=== PATIENT | male | born 1970 | race American Indian/Alaskan Native ===

== ENCOUNTER 2017-04-23 22:46 | Emergency (ER) | payer OTHER ==
[2017-04-23 23:04] VITALS: BP 159/103
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
[2017-04-23 23:57] LABS: CHLORIDE,CL 99 mmol/L (101-111); SODIUM,NA 137 mmol/L (135-145)
--- NOTE | 2017-04-25 11:35 | EKG ---
04/23/2017 - PAZ CHAUHAN - TIME: 2213 hours. EKG shows normal sinus rhythm. Nonspecific T-wave abnormality in anterior lateral leads. [facility] /[id number]
== END 2017-04-24 00:39 | disposition home or self-care (01) ==
LOC: DL.ED 22:46
DX: I11.9 Hypertensive heart disease without heart failure (principal)
CPT/HCPCS: 36415; 80053; 84484; 85025; 85379; 93005; 99284; G0480; 93010

== ENCOUNTER 2019-06-11 09:44 | Emergency (ER) | payer BC, OTHER ==
[2019-06-11 10:03] VITALS: BP 164/93; PULSE 130
[2019-06-11] MEDS ORDERED: Acetaminophen/HYDROcodone 325-10 MG Tab PO ONE (10:48)
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
== END 2019-06-11 11:20 | disposition home or self-care (01) ==
LOC: DL.ED 09:44
DX: S92.014A Nondisplaced fracture of body of right calcaneus, initial encounter for closed fracture (principal); I10 Essential (primary) hypertension; Z79.899 Other long term (current) drug therapy; Y93.39 Activity, other involving climbing, rappelling and jumping off
CPT/HCPCS: 29515; 73610; 73650; 99283; A9270; 29505

== ENCOUNTER 2021-01-05 12:15 | Emergency (ER) | payer MEDICAID, OTHER ==
[2021-01-05 12:23] VITALS: BP 148/98; PULSE 90
[2021-01-05] MEDS ORDERED: Ondansetron 4 MG/2 ML SDV IVPUSH ONE (13:03)
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
[2021-01-05 13:26] LABS: ANION GAP 17.5 mEq/L (7-13); CHLORIDE,CL 103 mmol/L (98-107); SODIUM,NA 141 mmol/L (136-145)
[2021-01-05] MEDS ORDERED: Iopamidol 612 MG/ML 100 ML Bottle IVPUSH ONE (14:01)
[2021-01-05] MEDS ORDERED: Octreotide 100 MCG/ML SDV IVPUSH ONE (14:34)
[2021-01-05] MEDS ORDERED: Pantoprazole 40 MG Vial IVPUSH ONE (14:34)
[2021-01-05] MEDS ORDERED: MVI, Adult with Vitamin K 10 ML, Thiamine 100 MG, Folic Acid 1 MG in Lactated Ringers 1... IV ONE ×4 (14:34)
[2021-01-05] MEDS ORDERED: Ondansetron 4 MG/2 ML SDV IV ONE (14:35)
[2021-01-05] MEDS ORDERED: Sodium Chloride 0.9% 10 ML Syringe FLUSH PRN (14:36)
[2021-01-05] MEDS ORDERED: Octreotide 100 MCG in Sodium Chloride 0.9% 99 ML IV SCH (14:45)
[2021-01-05] MEDS ORDERED: Pantoprazole 40 MG in Sodium Chloride 0.9% 100 ML IV SCH (14:45)
[2021-01-05] MEDS ORDERED: LORazepam 2 MG/ML SDV IVPUSH ONE (15:01)
--- NOTE | 2021-01-05 15:01 | CT ---
PROCEDURE INFORMATION: Exam: CT Chest With Contrast; Diagnostic Exam date and time: 01/05/2021 2:25 PM Age: 50 years old Clinical indication: Other: Vomiting blood after contrast; Shortness of breath; Additional info: SOB and abd pain, HX pulmonary nodules, presents with with SOB with exertion, also complaing of abd pain with elevated bilirubin TECHNIQUE: Imaging protocol: Diagnostic computed tomography of the chest with contrast. Radiation optimization: All CT scans at this facility use at least one of these dose optimization techniques: automated exposure control; mA and/or kV adjustment per patient size (includes targeted exams where dose is matched to clinical indication); or iterative reconstruction. Contrast material: [id number]; Contrast volume: 100 ml; Contrast route: INTRAVENOUS (IV); COMPARISON: No relevant prior studies available. FINDINGS: Lungs: Unremarkable. No consolidation. No masses. Pleural spaces: Unremarkable. No pneumothorax. No pleural effusion. Heart: Unremarkable. No cardiomegaly. No pericardial effusion. Aorta: Unremarkable. No aortic aneurysm. Lymph nodes: Unremarkable. No enlarged lymph nodes. Bones/joints: Unremarkable. No acute fracture. Soft tissues: Unremarkable. IMPRESSION: Normal appearance of the chest.. PROCEDURE INFORMATION: Exam: CT Abdomen And Pelvis With Contrast Exam date and time: 01/05/2021 2:25 PM Age: 50 years old Clinical indication: Other: Vomiting blood after contrast; Shortness of breath; Additional info: SOB and abd pain, HX pulmonary nodules, presents with with SOB with exertion, also complaing of abd pain with elevated bilirubin TECHNIQUE: Imaging protocol: Computed tomography of the abdomen and pelvis with contrast. Radiation optimization: All CT scans at this facility use at least one of these dose optimization techniques: automated exposure control; mA and/or kV adjustment per patient size (includes targeted exams where dose is matched to clinical indication); or iterative reconstruction. Contrast material: [id number]; Contrast volume: 100 ml; Contrast route: INTRAVENOUS (IV); COMPARISON: No relevant prior studies available. FINDINGS: Liver: There is marked diffuse decreased attenuation within the liver compatible with fatty change. The liver is also slightly enlarged. Question possible steatohepatitis. No focal hepatic lesion identified. Gallbladder and bile ducts: Normal. No calcified stones. No ductal dilation. Pancreas: Normal. No ductal dilation. Spleen: Normal. No splenomegaly. Adrenal glands: Normal. No mass. Kidneys and ureters: Normal. No hydronephrosis. Stomach and bowel: Unremarkable. No obstruction. No mucosal thickening. Appendix: No evidence of appendicitis. Intraperitoneal space: Unremarkable. No free air. No significant fluid collection. Vasculature: Unremarkable. No abdominal aortic aneurysm. Lymph nodes: Unremarkable. No enlarged lymph nodes. Urinary bladder: Unremarkable as visualized. Reproductive: Unremarkable as visualized. Bones/joints: Unremarkable. No acute fracture. Soft tissues: Unremarkable. IMPRESSION: 1. Marked fatty change within the liver with mild hepatomegaly. Question possible steno hepatitis. No other abnormality identified within the abdomen or pelvis.
== END 2021-01-05 16:37 ==
LOC: DL.ED 12:15
DX: K92.2 Gastrointestinal hemorrhage, unspecified (principal); F10.10 Alcohol abuse, uncomplicated; I10 Essential (primary) hypertension
CPT/HCPCS: 36415; 71260; 74177; 80053; 80305; 80307; 81001; 82272; 83605; 83615; 83690; 83735; 84439; 84443; 84484; 85025; 87635; 93005; 93010; 96365; 96368; 96375; 96376; 99284; 99285; C9113; J2060; J2354; J2405; J3411; J7120; Q9967; J3490; U0002

== ENCOUNTER 2021-06-17 18:23 | Emergency (ER) | payer MEDICAID ==
[2021-06-17 19:19] VITALS: BP 122/88; PULSE 94
[2021-06-17] MEDS ORDERED: Acetaminophen 325 MG Tab PO ONE (19:34)
[2021-06-17 20:19] LABS: ANION GAP 14.8 mEq/L (7-13); CHLORIDE,CL 97 mmol/L (98-107); SODIUM,NA 135 mmol/L (136-145)
[2021-06-17] MEDS ORDERED: Azithromycin 250 MG Tab PO ONE (20:30)
[2021-06-17] MEDS ORDERED: Benzonatate 100 MG Cap PO ONE (20:30)
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
--- NOTE | 2021-06-17 21:22 | CR ---
PROCEDURE INFORMATION: Exam: XR Chest Exam date and time: 06/17/2021 8:14 PM Age: 51 years old Clinical indication: Cough; Additional info: Covid + cough TECHNIQUE: Imaging protocol: XR of the chest. Views: 1 view. COMPARISON: CT Chest Abdomen Pelvis w Cont 01/05/2021 2:25 PM FINDINGS: Tubes, catheters and devices: Cardiac lead wires are present. Lungs: Linear and patchy areas of parenchymal opacification are seen at both lung bases but more pronounced on the right. This most likely represents a combination of atelectasis and possibly pneumonia, especially on the right. Pleural spaces: Unremarkable. No pleural effusion. No pneumothorax. Heart/Mediastinum: Unremarkable. No cardiomegaly. Bones/joints: Unremarkable. IMPRESSION: Bibasilar areas of parenchymal opacification, larger on the right.
== END 2021-06-17 20:55 | disposition home or self-care (01) ==
LOC: DL.ED 18:23
DX: U07.1 COVID-19 (principal); J12.82 Pneumonia due to coronavirus disease 2019; I10 Essential (primary) hypertension
CPT/HCPCS: 36415; 71045; 80053; 80307; 83605; 83735; 85025; 85379; 85610; 87040; 99283; A9270

== ENCOUNTER 2021-06-19 20:12 | Emergency (ER) | payer MEDICAID ==
[2021-06-19 19:53] VITALS: BP 125/89; PULSE 81
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
[~2021-06-19 20:12] MED LIST: Sodium Chloride 0.9% 10 ML Syringe FLUSH PRN
[2021-06-19 20:25] LABS: ANION GAP 16.8 mEq/L (7-13); CHLORIDE,CL 96 mmol/L (98-107); SODIUM,NA 132 mmol/L (136-145)
--- NOTE | 2021-06-19 20:31 | PCM.EKG ---
#1 Interpretation EKG Date: 06/19/21 Time: 19:59 Rhythm: NSR Rate (Beats/Min): 73 [place]: Normal P-Wave: Present QRS: Normal ST-T: Normal QT: Normal
--- NOTE | 2021-06-19 20:45 | CR ---
PROCEDURE INFORMATION: Exam: XR Chest Exam date and time: 06/19/2021 8:14 PM Age: 51 years old Clinical indication: Shortness of breath; Additional info: Covid SOB TECHNIQUE: Imaging protocol: XR of the chest. Views: 1 view. COMPARISON: CR Chest 1V Frontal 06/17/2021 8:14 PM FINDINGS: Lungs: Bilateral infiltrates in the mid and lower lung zones consistent with known covid diagnosis. There has been slight progression in the left lower lobe. Pleural spaces: Unremarkable. No pleural effusion. No pneumothorax. Heart/Mediastinum: Unremarkable. No cardiomegaly. Bones/joints: Unremarkable. IMPRESSION: Bilateral infiltrates in the mid and lower lung zones consistent with known covid diagnosis. There has been slight progression in the left lower lobe.
== END 2021-06-19 21:00 | disposition home or self-care (01) ==
LOC: DL.ED 20:12
DX: U07.1 COVID-19 (principal); I10 Essential (primary) hypertension
CPT/HCPCS: 36415; 71045; 80053; 82728; 83615; 84484; 85025; 85379; 86140; 87040; 93005; 99285-25

== ENCOUNTER 2021-06-23 06:39 | Inpatient (IN) | payer MEDICAID ==
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
[2021-06-23] MEDS: Sodium Chloride 0.9% 10 ML Syringe FLUSH PRN ×3 (07:08→08:22)
[2021-06-23 07:12] LABS: BASE EXCESS ARTERIAL 1 mmol/L ((-2)-(+3)); BICARBONATE,ARTERIAL 23.6 mmol/L (22-26); O2 DELIVERY DEVICE NON REBR MASK; O2 SATURATION ARTERIAL 94 % (95-100); PCO2 ARTERIAL 33 mmHg (35-45); PO2 ARTERIAL 67 mmHg (70-100)
[2021-06-23 07:19] LABS: ANION GAP 15.4 mEq/L (7-13); CHLORIDE,CL 99 mmol/L (98-107); SODIUM,NA 136 mmol/L (136-145)
[2021-06-23] MEDS ORDERED: Dexamethasone 4 MG/ML SDV IVPUSH ONE (07:27)
[2021-06-23] MEDS ORDERED: cefTRIAXone 1 GM in Sodium Chloride 0.9% 50 ML IV ONE (07:28)
[2021-06-23 07:39] LABS: PTT,PARTIAL THROMBOPLSTIN TIME 26.3 SEC (22.0-34.0)
[2021-06-23] MEDS ORDERED: Ondansetron 4 MG/2 ML SDV IVPUSH ONE (07:42)
--- NOTE | 2021-06-23 08:26 | CR ---
PROCEDURE INFORMATION: Exam: XR Chest Exam date and time: 06/23/2021 6:58 AM Age: 51 years old Clinical indication: Other: Hypoxia; Additional info: Covid, hypoxia TECHNIQUE: Imaging protocol: XR of the chest. Views: 1 view. COMPARISON: CR Chest 1V Frontal 06/19/2021 8:14 PM FINDINGS: Lungs: Stable to slightly increased patchy bilateral ground-glass and reticulonodular opacities. Pleural spaces: Unremarkable. No pleural effusion. No pneumothorax. Heart/Mediastinum: Unremarkable. No cardiomegaly. Bones/joints: Unremarkable. IMPRESSION: Stable to slightly increased patchy bilateral ground-glass and reticulonodular opacities.
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
[2021-06-23] MEDS ORDERED: Zolpidem 5 MG Tab PO PRN (09:28)
[2021-06-23] MEDS ORDERED: HYDROmorphone 0.5 MG/0.5 ML Syringe IVPUSH PRN (09:28)
[2021-06-23] MEDS ORDERED: Glucagon,Human Recombinant 1 MG Vial IM PRN (09:34)
[2021-06-23] MEDS ORDERED: 50% Dextrose in Water 50 ML Syringe IVPUSH PRN (09:34)
[2021-06-23] MEDS ORDERED: Insulin Lispro 100 Units/ML 3 ML Vial SUBCUT PRN (09:34)
[2021-06-23] MEDS ORDERED: Potassium Chloride 10 MEQ Tab.ER PO ONE (09:35)
[2021-06-23] MEDS ORDERED: Levofloxacin/Dextrose 5%-Water 750 MG in Premix Bag 1 BAG IV SCH (10:00)
[2021-06-23 11:52] LABS: BASE EXCESS ARTERIAL 3 mmol/L ((-2)-(+3)); BICARBONATE,ARTERIAL 26.4 mmol/L (22-26); O2 DELIVERY DEVICE NON REBR MASK; O2 SATURATION ARTERIAL 95 % (95-100); PCO2 ARTERIAL 39 mmHg (35-45); PO2 ARTERIAL 75 mmHg (70-100)
[2021-06-23 11:54] LABS: ALLEN TEST rb; O2 FLOW RATE 12
[2021-06-23] MEDS ORDERED: diphenhydrAMINE 50 MG/ML SDV IVPUSH ONE ×2 (12:00→18:00)
[2021-06-23] MEDS ORDERED: Famotidine 20 MG/2 ML SDV IVPUSH ONE (12:01)
[2021-06-23] MEDS: Albuterol/Ipratropium 3.0-0.5 MG/3 ML Neb Soln NEB PRN ×2 (12:12→20:08)
[2021-06-23] MEDS ORDERED: Tocilizumab 80 MG in Sodium Chloride 0.9% 100 ML IV ONE (12:26)
[2021-06-23] MEDS ORDERED: SODIUM CHLORIDE 0.9% IV SCH (12:30)
[2021-06-23] MEDS ORDERED: VANCOMYCIN IV SCH (12:30)
[2021-06-23] MEDS: Ondansetron 4 MG/2 ML SDV IVPUSH PRN (14:02)
[2021-06-23] MEDS ORDERED: Sodium Chloride 0.9% Inhalation Soln 3 ML Neb INH PRN (15:19)
[2021-06-23] MEDS ORDERED: Racepinephrine 2.25% 0.5 ML Neb Soln NEB ONE (15:19)
[2021-06-23 15:44] LABS: AMPHETAMINES,URINE NEGATIVE (NEGATIVE); BARBITURATES,URINE NEGATIVE (NEGATIVE); BENZODIAZEPINE,URINE NEGATIVE (NEGATIVE); MDMA (ECSTASY), URINE NEGATIVE (NEGATIVE); METHADONE,URINE NEGATIVE (NEGATIVE); METHAMPHETAMINES,URINE NEGATIVE (NEGATIVE); OPIATES,URINE NEGATIVE (NEGATIVE); OXYCODONE,URINE NEGATIVE (NEGATIVE); PHENCYCLIDINE,URINE NEGATIVE (NEGATIVE); TCA,URINE NEGATIVE (NEGATIVE)
[2021-06-23] MEDS: Piperacillin/Tazobactam 3.375 GM in Sodium Chloride 0.9% 100 ML IV SCH (17:53)
[2021-06-23] MEDS ORDERED: hydrALAZINE 20 MG/ML SDV IVPUSH PRN (19:43)
[2021-06-23] MEDS ORDERED: Metoprolol Tartrate 5 MG/5 ML SDV IVPUSH PRN (19:43)
[2021-06-23] MEDS: Dexamethasone 4 MG/ML SDV IVPUSH SCH (21:37)
[2021-06-23] MEDS: Famotidine 20 MG Tab PO SCH (21:42)
[2021-06-24] MEDS: Piperacillin/Tazobactam 3.375 GM in Sodium Chloride 0.9% 100 ML IV SCH ×5 (00:05→23:30)
[2021-06-24] MEDS: Albuterol/Ipratropium 3.0-0.5 MG/3 ML Neb Soln NEB PRN ×3 (00:42→13:35)
[2021-06-24] MEDS ORDERED: Water For Injection, Sterile 40 ML ONE (04:28)
[2021-06-24] MEDS: Acetaminophen 325 MG Tab PO PRN ×2 (05:38→13:33)
[2021-06-24 06:31] LABS: ANION GAP 13.3 mEq/L (7-13); CHLORIDE,CL 102 mmol/L (98-107); SODIUM,NA 136 mmol/L (136-145)
[2021-06-24] MEDS: Famotidine 20 MG Tab PO SCH ×2 (08:23→20:40)
[2021-06-24] MEDS: Escitalopram 10 MG Tab PO SCH (08:24)
[2021-06-24] MEDS: Enoxaparin 40 MG/0.4 ML Syringe SUBCUT SCH (08:24)
[2021-06-24] MEDS: Dexamethasone 4 MG/ML SDV IVPUSH SCH ×2 (08:25→20:40)
[2021-06-24] MEDS: amLODIPine 5 MG Tab PO SCH (08:26)
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
[2021-06-24] MEDS: VANCOmycin 1.5 GM/300 ML 1.5 GM in Premix Bag 1 BAG IV SCH ×2 (13:29→20:45)
[2021-06-24] MEDS ORDERED: Polyethylene Glycol 3350 Powder 17 GM Packet PO PRN (14:52)
[2021-06-25] MEDS: Albuterol/Ipratropium 3.0-0.5 MG/3 ML Neb Soln NEB PRN ×2 (00:02→04:11)
[2021-06-25] MEDS: VANCOmycin 1.5 GM/300 ML 1.5 GM in Premix Bag 1 BAG IV SCH ×3 (04:15→20:55)
[2021-06-25 05:47] LABS: BORDETELLA PARAPERT IS1001 Not Detected (Not Detected)
[2021-06-25] MEDS: Piperacillin/Tazobactam 3.375 GM in Sodium Chloride 0.9% 100 ML IV SCH ×3 (06:07→17:14)
[2021-06-25] MEDS: Acetaminophen 325 MG Tab PO PRN ×3 (06:40→20:58)
[2021-06-25 07:04] LABS: ANION GAP 14.3 mEq/L (7-13); CHLORIDE,CL 101 mmol/L (98-107); SODIUM,NA 134 mmol/L (136-145)
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
[2021-06-25] MEDS: Enoxaparin 40 MG/0.4 ML Syringe SUBCUT SCH (08:27)
[2021-06-25] MEDS: Dexamethasone 4 MG/ML SDV IVPUSH SCH ×2 (08:27→20:57)
[2021-06-25] MEDS: Sodium Chloride 0.9% 10 ML Syringe FLUSH PRN ×4 (08:34→13:19)
[2021-06-25] MEDS: amLODIPine 5 MG Tab PO SCH (08:35)
[2021-06-25] MEDS: Famotidine 20 MG Tab PO SCH ×2 (08:35→20:58)
[2021-06-25] MEDS: Escitalopram 10 MG Tab PO SCH (08:35)
--- NOTE | 2021-06-25 09:07 | CR ---
PROCEDURE INFORMATION: Exam: XR Chest Exam date and time: 06/25/2021 8:08 AM Age: 51 years old Clinical indication: Shortness of breath and other: Covid-19 TECHNIQUE: Imaging protocol: XR of the chest. Views: 1 view. COMPARISON: CR Chest 1V Frontal 06/23/2021 6:58 AM FINDINGS: Lungs: Worsened diffuse peripheral dominant bilateral airspace opacification that spares all and the left lung apex. Pleural spaces: No pleural effusion or pneumothorax. Heart/Mediastinum: Normal heart and cardio-mediastinal silhouette. Vasculature: Normal pulmonary vessels and width of the vascular pedicle. Bones/joints: Intact and normally aligned. No suspicious lesion. IMPRESSION: Worsened diffuse bilateral lung infiltrates associated with known pneumonia.
[2021-06-25] MEDS ORDERED: Enoxaparin 40 MG/0.4 ML Syringe SUBCUT SCH (21:00)
[2021-06-25] MEDS ORDERED: Enoxaparin 100 MG/1 ML Syringe SUBCUT SCH (21:00)
[2021-06-26] MEDS: Enoxaparin 60 MG/0.6 ML Syringe SUBCUT SCH ×3 (00:05→20:39)
[2021-06-26] MEDS: Piperacillin/Tazobactam 3.375 GM in Sodium Chloride 0.9% 100 ML IV SCH ×5 (00:05→23:21)
[2021-06-26] MEDS: VANCOmycin 1.5 GM/300 ML 1.5 GM in Premix Bag 1 BAG IV SCH ×3 (05:31→20:36)
[2021-06-26] MEDS: Levothyroxine 25 MCG Tab PO SCH (05:50)
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
[2021-06-26 07:13] LABS: ANION GAP 13.2 mEq/L (7-13); CHLORIDE,CL 101 mmol/L (98-107); SODIUM,NA 136 mmol/L (136-145)
[2021-06-26] MEDS: Albuterol/Ipratropium 3.0-0.5 MG/3 ML Neb Soln NEB PRN ×3 (08:39→23:37)
[2021-06-26] MEDS: Escitalopram 10 MG Tab PO SCH (08:40)
[2021-06-26] MEDS: Famotidine 20 MG Tab PO SCH ×2 (08:40→20:40)
[2021-06-26] MEDS: amLODIPine 5 MG Tab PO SCH (08:40)
[2021-06-26] MEDS: Acetaminophen 325 MG Tab PO PRN ×2 (08:41→23:41)
[2021-06-26] MEDS: Dexamethasone 4 MG/ML SDV IVPUSH SCH ×2 (08:42→20:37)
[2021-06-26] MEDS: Ondansetron 4 MG/2 ML SDV IVPUSH PRN (08:42)
[2021-06-26] MEDS: guaiFENesin/Dextromethorphan 100-10 MG/5 ML Soln 5 ML Cup PO PRN ×3 (08:48→23:41)
[2021-06-26] MEDS: Sodium Chloride 0.9% 10 ML Syringe FLUSH PRN ×2 (13:02→20:40)
[2021-06-26] MEDS: Loperamide 2 MG Cap PO PRN (18:05)
[2021-06-27] MEDS: VANCOmycin 1.5 GM/300 ML 1.5 GM in Premix Bag 1 BAG IV SCH (04:41)
[2021-06-27] MEDS: Albuterol/Ipratropium 3.0-0.5 MG/3 ML Neb Soln NEB PRN ×2 (04:43→14:16)
[2021-06-27] MEDS: guaiFENesin/Dextromethorphan 100-10 MG/5 ML Soln 5 ML Cup PO PRN ×3 (04:48→23:07)
[2021-06-27] MEDS: Acetaminophen 325 MG Tab PO PRN ×3 (04:48→21:39)
[2021-06-27] MEDS: Levothyroxine 25 MCG Tab PO SCH ×2 (04:49→05:15)
[2021-06-27] MEDS: Piperacillin/Tazobactam 3.375 GM in Sodium Chloride 0.9% 100 ML IV SCH (05:43)
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
[2021-06-27 07:14] LABS: CHLORIDE,CL 101 mmol/L (98-107); SODIUM,NA 137 mmol/L (136-145)
[2021-06-27] MEDS: Enoxaparin 60 MG/0.6 ML Syringe SUBCUT SCH ×2 (09:02→21:12)
[2021-06-27] MEDS: Famotidine 20 MG Tab PO SCH ×2 (09:03→21:12)
[2021-06-27] MEDS: Escitalopram 10 MG Tab PO SCH (09:03)
[2021-06-27] MEDS: amLODIPine 5 MG Tab PO SCH (09:03)
[2021-06-27] MEDS: Dexamethasone 4 MG/ML SDV IVPUSH SCH ×2 (09:04→21:13)
[2021-06-27] MEDS: Amoxicillin/Clavulanate K 875-125 MG Tab PO SCH ×2 (12:46→21:12)
[2021-06-27] MEDS: Loperamide 2 MG Cap PO PRN ×2 (13:54→21:39)
[2021-06-27] MEDS: Ondansetron 4 MG/2 ML SDV IVPUSH PRN (16:57)
[2021-06-28] MEDS: Levothyroxine 25 MCG Tab PO SCH (05:40)
[2021-06-28] MEDS: Acetaminophen 325 MG Tab PO PRN ×3 (05:49→20:41)
[2021-06-28] MEDS: guaiFENesin/Dextromethorphan 100-10 MG/5 ML Soln 5 ML Cup PO PRN ×3 (05:49→20:42)
[2021-06-28] MEDS: Albuterol/Ipratropium 3.0-0.5 MG/3 ML Neb Soln NEB PRN (05:49)
[2021-06-28 07:03] LABS: ANION GAP 11.8 mEq/L (7-13); CHLORIDE,CL 99 mmol/L (98-107); SODIUM,NA 132 mmol/L (136-145)
[2021-06-28] MEDS: Amoxicillin/Clavulanate K 875-125 MG Tab PO SCH ×2 (09:19→20:41)
[2021-06-28] MEDS: Famotidine 20 MG Tab PO SCH ×2 (09:19→20:41)
[2021-06-28] MEDS: Escitalopram 10 MG Tab PO SCH (09:19)
[2021-06-28] MEDS: amLODIPine 5 MG Tab PO SCH (09:20)
[2021-06-28] MEDS: Dexamethasone 4 MG/ML SDV IVPUSH SCH ×2 (09:20→20:40)
[2021-06-28] MEDS: Loperamide 2 MG Cap PO PRN (09:23)
[2021-06-28] MEDS: Enoxaparin 60 MG/0.6 ML Syringe SUBCUT SCH ×2 (09:30→20:44)
--- NOTE | 2021-06-28 09:45 | CR ---
PROCEDURE INFORMATION: Exam: XR Chest Exam date and time: 06/28/2021 9:11 AM Age: 51 years old Clinical indication: Other: Covid pneumonia; Additional info: Covid-pneumonia TECHNIQUE: Imaging protocol: XR of the chest. Views: 1 view. COMPARISON: CR Chest 1V Frontal 06/25/2021 8:08 AM FINDINGS: Lungs: Decreased bilateral peripheral dominant mid and lower lung zone ground-glass opacification. Pleural spaces: Normal. Heart/Mediastinum: Normal heart and cardio-mediastinal silhouette. Vasculature: Normal pulmonary vessels and width of the vascular pedicle. Bones/joints: Intact and normally aligned. No suspicious lesion. IMPRESSION: Decreased bilateral lung infiltrates/pneumonia.
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
[2021-06-29] MEDS: Albuterol/Ipratropium 3.0-0.5 MG/3 ML Neb Soln NEB PRN ×2 (00:07→08:52)
[2021-06-29] MEDS: Loperamide 2 MG Cap PO PRN ×2 (00:08→08:50)
[2021-06-29] MEDS: Levothyroxine 25 MCG Tab PO SCH (05:24)
[2021-06-29 06:58] LABS: ANION GAP 16.2 mEq/L (7-13); CHLORIDE,CL 101 mmol/L (98-107); SODIUM,NA 137 mmol/L (136-145)
[2021-06-29 08:30] VITALS: BP 121/65; PULSE 82
[2021-06-29] MEDS: amLODIPine 5 MG Tab PO SCH (08:49)
[2021-06-29] MEDS: Amoxicillin/Clavulanate K 875-125 MG Tab PO SCH (08:49)
[2021-06-29] MEDS: Escitalopram 10 MG Tab PO SCH (08:49)
[2021-06-29] MEDS: Famotidine 20 MG Tab PO SCH (08:49)
[2021-06-29] MEDS: Acetaminophen 325 MG Tab PO PRN (08:50)
[2021-06-29] MEDS: guaiFENesin/Dextromethorphan 100-10 MG/5 ML Soln 5 ML Cup PO PRN (08:52)
[2021-06-29] MEDS: Enoxaparin 60 MG/0.6 ML Syringe SUBCUT SCH ×2 (08:52→08:54)
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
== END 2021-06-29 12:30 | disposition home or self-care (01) | DRG 177 ==
LOC: DL.ED 06:39 → DL.MS 08:25
PROVIDERS: ADMIT Internal Medicine; ATTEND Internal Medicine
PROC: 8E0ZXY6 Isolation (ICD-10-PCS; principal; 2021-06-23)
PROC: 3E0333Z Introduction of Anti-inflammatory into Peripheral Vein, Percutaneous Approach (ICD-10-PCS; 2021-06-23)
PROC: XW033H5 Introduction of Tocilizumab into Peripheral Vein, Percutaneous Approach, New Technology Group 5 (ICD-10-PCS; 2021-06-25)
DX: U07.1 COVID-19 (principal); J12.82 Pneumonia due to coronavirus disease 2019; J96.01 Acute respiratory failure with hypoxia; A08.39 Other viral enteritis; E87.1 Hypo-osmolality and hyponatremia; H54.7 Unspecified visual loss; I10 Essential (primary) hypertension; E03.9 Hypothyroidism, unspecified; E66.9 Obesity, unspecified; K76.0 Fatty (change of) liver, not elsewhere classified; E87.6 Hypokalemia; R73.9 Hyperglycemia, unspecified; T38.0X5A Adverse effect of glucocorticoids and synthetic analogues, initial encounter; T36.8X5A Adverse effect of other systemic antibiotics, initial encounter; D69.6 Thrombocytopenia, unspecified; Z23 Encounter for immunization; Z79.52 Long term (current) use of systemic steroids; Z79.899 Other long term (current) drug therapy; Z88.1 Allergy status to other antibiotic agents; Z87.891 Personal history of nicotine dependence; Z68.36 Body mass index [BMI] 36.0-36.9, adult
CPT/HCPCS: 36415; 36600; 71045; 80048; 80053; 80202; 80305-QW; 80307; 81001; 82306; 82728; 82803; 82947; 83605; 83615; 83735; 83880; 84145; 84484; 85025; 85027; 85379; 85610; 85651; 85730; 86140; 87040; 87070; 87205; 87486; 87493; 87581; 87633; 87798; 93005; 94640; 94762; 96365; 96375; 99284; 99285-25; A9270-GY; J0696; J1100; J1200; J1650; J1956; J2405; J2543; J3370; J3490; J7040; J7620-GY; M0249; Q0249

== ENCOUNTER 2023-04-20 14:11 | Observation (INO) | payer MEDICAID ==
[2023-04-20] MEDS: Sodium Chloride 0.9% 10 ML Syringe FLUSH PRN (14:28)
[2023-04-20 14:33] LABS: BASOPHILS PERCENT AUTO 0.3 % (0.0-1.0); EOSINOPHILS PERCENT AUTO 0.3 % (1.0-3.0); HEMATOCRIT 45.8 % (40.0-54.0); HEMOGLOBIN 15.9 g/dL (14.0-18.0); LYMPHOCYTES PERCENT AUTO 22.9 % (20.5-50.1); MEAN CORPUSCULAR HEMOGLOBIN 33.3 pg (27.0-34.0); MEAN CORPUSCULAR HGB CONC 34.7 g/dL (33.0-35.0); MEAN CORPUSCULAR VOLUME 95.8 fL (80-100); MONOCYTES PERCENT AUTO 6.9 % (2-8); NEUTROPHILS PERCENT AUTO 69.6 % (42.2-75.2); PLATELET COUNT,PLT 200 10^3/uL (150-450); RED BLOOD CELL COUNT 4.78 10^6/uL (4.6-6.2); WHITE BLOOD CELL COUNT,WBC 7.8 10^3/uL (5.0-10.0)
[2023-04-20 14:56] LABS: ALANINE AMINOTRANSFERASE,ALT 51 U/L (16-63); ALBUMIN 3.9 g/dL (3.4-5.0); ALKALINE PHOSPHATASE 94 U/L (46-116); ANION GAP 26.9 mEq/L (7-13); ASPARTATE AMNIOTRANSFERASE,AST 61 U/L (15-37); BILIRUBIN TOTAL 2.5 mg/dL (0.2-1.0); BLOOD UREA NITROGEN,BUN 7 mg/dL (7-18); BUN/CREATININE RATIO 7.3 (No establ ref range); CALCIUM 8.6 mg/dL (8.5-10.1); CARBON DIOXIDE,CO2 18 mmol/L (21-32); CHLORIDE,CL 94 mmol/L (98-107); CREATININE 0.96 mg/dL (0.70-1.30); EST CRCL DRUG DOSING (CG) 91.88 mL/min; ETHANOL BLOOD MEDICAL 16 mg/dL (0); GLUCOSE RANDOM 112 mg/dL (70-99); LIPASE 159 U/L (73-393); POTASSIUM,K 2.9 mmol/L (3.5-5.1); SODIUM,NA 136 mmol/L (136-145)
[2023-04-20 14:57] LABS: C-REACTIVE PROTEIN < 0.2 mg/dL (0.0-0.9); ESTIMATED GFR 95 mL/min (>=60)
[2023-04-20] MEDS ORDERED: Potassium Chloride 20 MEQ in Premix Bag 1 BAG IV ONE (15:12)
[2023-04-20] MEDS ORDERED: Potassium Chloride 10% 20 MEQ/15 ML Soln 15 ML UD Cup PO ONE (15:12)
[2023-04-20] MEDS ORDERED: Lactated Ringers 1,000 ML IV ONE (15:20)
[2023-04-20 15:26] LABS: PROTHROMBIN TIME 9.9 SEC (9.0-12.0); PTT,PARTIAL THROMBOPLSTIN TIME 26.7 SEC (22.0-34.0)
[2023-04-20 15:34] LABS: HEMOGLOBIN A1C 4.7 % (<5.7)
[2023-04-20 15:44] LABS: O2 DELIVERY DEVICE ROOM AIR
[2023-04-20 16:03] LABS: BASE EXCESS ARTERIAL -2 mmol/L ((-2)-(+3)); BICARBONATE,ARTERIAL 20.4 mmol/L (22-26); O2 SATURATION ARTERIAL 94 % (95-100); PCO2 ARTERIAL 31 mmHg (35-45); PH,ARTERIAL 7.44 (7.35-7.45); PO2 ARTERIAL 67 mmHg (70-100)
[2023-04-20] MEDS ORDERED: Sodium Chloride 0.9% 1,000 ML IV ONE (16:50)
[2023-04-20 17:13] LABS: AMPHETAMINES,URINE NEGATIVE (NEGATIVE); BARBITURATES,URINE NEGATIVE (NEGATIVE); BENZODIAZEPINE,URINE NEGATIVE (NEGATIVE); MDMA (ECSTASY), URINE NEGATIVE (NEGATIVE); METHADONE,URINE NEGATIVE (NEGATIVE); METHAMPHETAMINES,URINE NEGATIVE (NEGATIVE); OPIATES,URINE NEGATIVE (NEGATIVE); OXYCODONE,URINE NEGATIVE (NEGATIVE); PHENCYCLIDINE,URINE NEGATIVE (NEGATIVE); TCA,URINE NEGATIVE (NEGATIVE)
[2023-04-20 17:14] LABS: APPEARANCE,URINE CLEAR (CLEAR); BILIRUBIN,URINE NEGATIVE (NEGATIVE); COLOR,URINE YELLOW (YELLOW); GLUCOSE,URINE NEGATIVE (NEGATIVE); KETONES,URINE >=160 (NEGATIVE); LEUKOCYTE ESTERASE,URINE NEGATIVE (NEGATIVE); NITRITE,URINE NEGATIVE (NEGATIVE); OCCULT BLOOD,URINE TRACE-INTACT (NEGATIVE); PH,URINE 6.5 (5.0-9.0); PROTEIN,URINE NEGATIVE (NEGATIVE)
[2023-04-20 17:29] LABS: BACTERIA,URINE RARE /HPF (0-FEW/HPF); EPITHELIAL CELLS,URINE RARE /HPF (NOT SEEN); RBC,URINE 0-5 /HPF (0-5); WBC,URINE 0-5 /HPF (0-5/HPF)
[2023-04-20] MEDS ORDERED: LORazepam 2 MG/ML SDV IV PRN (19:35)
[2023-04-20] MEDS ORDERED: Ibuprofen 600 MG Tab PO PRN (19:35)
[2023-04-20] MEDS ORDERED: cloNIDine 0.1 MG Tab PO PRN (19:35)
[2023-04-20] MEDS ORDERED: Albuterol/Ipratropium 3.0-0.5 MG/3 ML Neb Soln NEB PRN (19:35)
[2023-04-20] MEDS ORDERED: Ondansetron 4 MG/2 ML SDV IVPUSH PRN (19:35)
[2023-04-20] MEDS ORDERED: Promethazine 25 MG/ML SDV IM PRN (19:35)
[2023-04-20] MEDS ORDERED: Haloperidol Lactate 5 MG/ML SDV IM PRN (19:35)
[2023-04-20] MEDS ORDERED: oxyCODONE 5 MG Tab PO PRN (19:35)
[2023-04-20] MEDS ORDERED: MVI, Adult with Vitamin K 10 ML, Folic Acid 1 MG, Thiamine 100 MG in Lactated Ringers 1... IV ONE ×4 (19:35)
[2023-04-20] MEDS ORDERED: LORazepam 0.5 MG Tab PO PRN (19:35)
[2023-04-20] MEDS ORDERED: HYDROmorphone 0.5 MG/0.5 ML Syringe IVPUSH PRN (19:35)
[2023-04-20] MEDS ORDERED: Thiamine 200 MG/2 ML MDV IVPUSH ONE (19:38)
[2023-04-20] MEDS ORDERED: Pantoprazole 40 MG Vial IVPUSH ONE (19:39)
[2023-04-20] MEDS ORDERED: hydrALAZINE 20 MG/ML SDV IVPUSH PRN (19:53)
[2023-04-20] MEDS ORDERED: Flumazenil 0.1 MG/ML 5 ML MDV IVPUSH PRN (19:54)
[2023-04-20] MEDS ORDERED: LORazepam 2 MG/ML SDV IVPUSH ONE (19:54)
[2023-04-20] MEDS: QUEtiapine 25 MG Tab PO SCH (20:23)
[2023-04-20] MEDS ORDERED: Topiramate 25 MG Tab PO ONE (21:00)
[2023-04-20] MEDS ORDERED: Topiramate 25 MG Tab PO SCH (21:00)
[2023-04-21] MEDS ORDERED: Levothyroxine 25 MCG Tab PO SCH (06:00)
[2023-04-21] MEDS ORDERED: Pantoprazole 40 MG Tab.CR PO SCH (06:00)
[2023-04-21 06:29] LABS: BASOPHILS PERCENT AUTO 0.3 % (0.0-1.0); EOSINOPHILS PERCENT AUTO 1.9 % (1.0-3.0); HEMATOCRIT 40.8 % (40.0-54.0); LYMPHOCYTES PERCENT AUTO 33.3 % (20.5-50.1); MEAN CORPUSCULAR HEMOGLOBIN 32.9 pg (27.0-34.0); MEAN CORPUSCULAR HGB CONC 34.3 g/dL (33.0-35.0); MEAN CORPUSCULAR VOLUME 95.8 fL (80-100); NEUTROPHILS PERCENT AUTO 53.5 % (42.2-75.2); PLATELET COUNT,PLT 170 10^3/uL (150-450); RED BLOOD CELL COUNT 4.26 10^6/uL (4.6-6.2); WHITE BLOOD CELL COUNT,WBC 7.2 10^3/uL (5.0-10.0)
[2023-04-21 06:52] LABS: BILIRUBIN TOTAL 2.3 mg/dL (0.2-1.0); BUN/CREATININE RATIO 8.3 (No establ ref range); CALCIUM 8.4 mg/dL (8.5-10.1); CREATININE 0.84 mg/dL (0.70-1.30); EST CRCL DRUG DOSING (CG) 134.79 mL/min; MAGNESIUM 1.9 mg/dL (1.8-2.4); PROTEIN TOTAL,TP 6.6 g/dL (6.4-8.2)
[2023-04-21 06:53] LABS: A/G RATIO 0.83
[2023-04-21] MEDS ORDERED: Thiamine 100 MG Tab PO SCH (09:00)
[2023-04-21] MEDS ORDERED: Topiramate 25 MG Tab PO SCH ×2 (09:00→21:00)
[2023-04-21] MEDS ORDERED: amLODIPine 5 MG Tab PO SCH (09:00)
[2023-04-21 10:24] LABS: ALLEN TEST PERFORMED
[2023-04-21 16:34] VITALS: PULSE 75
[2023-04-21] MEDS ORDERED: Loratadine 10 MG Tab PO SCH (18:00)
[2023-04-21] MEDS ORDERED: Folic Acid 1 MG Tab PO SCH (21:00)
[2023-04-21] MEDS ORDERED: Multivitamin Tab PO SCH (21:00)
[2023-04-21 21:18] VITALS: BP 153/99
[2023-04-21] MEDS: QUEtiapine 25 MG Tab PO SCH (21:19)
[2023-04-21] MEDS: Sodium Chloride 0.9% 10 ML Syringe FLUSH PRN (21:27)
[2023-04-22] MEDS ORDERED: Pantoprazole 40 MG Tab.CR PO SCH (06:00)
[2023-04-22] MEDS ORDERED: Levothyroxine 25 MCG Tab PO SCH (06:00)
[2023-04-22] MEDS ORDERED: amLODIPine 5 MG Tab PO SCH (09:00)
[2023-04-22] MEDS ORDERED: Thiamine 100 MG Tab PO SCH (09:00)
== END 2023-04-21 23:50 | disposition left against medical advice (07) ==
LOC: DL.ED 14:11 → DL.MS 17:48
PROVIDERS: ADMIT Internal Medicine; ATTEND Internal Medicine
DX: R55 Syncope and collapse (principal); F10.139 Alcohol abuse with withdrawal, unspecified; F43.21 Adjustment disorder with depressed mood; E87.6 Hypokalemia; E87.8 Other disorders of electrolyte and fluid balance, not elsewhere classified; E87.20 Acidosis, unspecified; R73.9 Hyperglycemia, unspecified; E80.6 Other disorders of bilirubin metabolism; R82.4 Acetonuria; R53.1 Weakness; R26.81 Unsteadiness on feet; I10 Essential (primary) hypertension; K76.0 Fatty (change of) liver, not elsewhere classified; E03.9 Hypothyroidism, unspecified; F17.210 Nicotine dependence, cigarettes, uncomplicated; Z88.1 Allergy status to other antibiotic agents; Z79.890 Hormone replacement therapy; Z79.899 Other long term (current) drug therapy; Y90.3 Blood alcohol level of 60-79 mg/100 ml; Z86.16 Personal history of COVID-19
CPT/HCPCS: 36415; 36600; 70450; 70551; 80053; 80143; 80179; 80305; 80307; 81001; 82009; 82140; 82803; 83036; 83605; 83690; 83735; 84484; 85025; 85610; 85730; 86140; 93005; 93880; 94010; 94060; 96365; 99285; A9270; C9113; J1170; J2060; J3411; J3480; J7030; J7120; 96366; 96367; 96375; 96376; G0378; J3490